=== PATIENT | female | born 1945 | race Hispanic/Latino ===

== ENCOUNTER 2017-03-28 15:27 | Emergency (ER) | payer MEDICARE, OTHER ==
[2017-03-28 15:33] VITALS: BMI 28.8
[2017-03-28 15:52] VITALS: TEMP 97.4
--- NOTE | 2017-03-28 16:22 | ED PDOC ---
Arrival/HPI - General Historian: Patient - History of Present Illness Time/Duration: Other (few weeks) Symptom Course: Worsening (today) Quality: Other Context: Home <Jose Mcclure Collin - Last Filed: 03/28/17 18:49> <Shwetha Dumont - Last Filed: 03/28/17 21:12> - General Chief Complaint: Abdominal Pain Time Seen by Provider: 03/28/17 15:30 - History of Present Illness Narrative History of Present Illness (Text): 03/28/17 16:18 A 72 year old female, whose past medical history includes chronic back pain, presents to the emergency department complaining of mid upper epigastric pain for the past few weeks. Patient reports her pain is exacerbated with movement. She notes her symptom worsened today causing her to come in for further evaluation. Patient reports she had a concussion after a fall approximately 4 months ago, which she receives physical therapy for. Patient denies any fever, chills, nausea, vomiting, appetite changes, diarrhea, urinary symptoms, chest pain, shortness of breath, cough, headache, dizziness or any other complaints. (KamiJose Collin) Past Medical History - Provider Review Nursing Documentation Reviewed: Yes - Infectious Disease Hx of Infectious Diseases: None - Tetanus Immunization Tetanus Immunization: Unknown - Cardiac Hx Hypertension: Yes - Psychiatric Hx Substance Use: No <Jose Mcclure - Last Filed: 03/28/17 18:49> Family/Social History - Physician Review Nursing Documentation Reviewed: Yes Family/Social History: No Known Family HX Smoking Status: Never Smoked Hx Alcohol Use: No Hx Substance Use: No Hx Substance Use Treatment: No <Jose Mcclure Collin - Last Filed: 03/28/17 18:49> Allergies/Home Meds <Jose Mcclure Collin - Last Filed: 03/28/17 18:49> <Shwetha Dumont - Last Filed: 03/28/17 21:12> Allergies/Adverse Reactions: Allergies chlordiazepoxide [From Librax (with clidinium)] Allergy (Verified 03/28/17 15:37 ) DIARRHEA clidinium [From Librax (with clidinium)] Allergy (Verified 03/28/17 15:37) DIARRHEA codeine Allergy (Verified 03/28/17 15:37) DIARRHEA iron Allergy (Verified 03/28/17 15:37) URTICARIA Penicillins Allergy (Verified 03/28/17 15:37) URTICARIA polymyxin B Allergy (Verified 03/28/17 15:37) URTICARIA Tetracyclines Allergy (Verified 03/28/17 15:37) URTICARIA clarithromycin Adverse Reaction (Verified 03/28/17 15:37) DIARRHEA clindamycin [From Cleocin] Adverse Reaction (Verified 03/28/17 15:37) DIZZINESS Home Medications: Home Meds Medication Instructions Recorded Confirmed Fosinopril Sodium [Fosinopril 20 mg PO DAILY 03/28/17 03/28/17 Sodium] Meclizine HCl [Motion Sickness II] 25 mg PO PRN PRN 03/28/17 03/28/17 Triamterene/Hydrochlorothiazid 1 tab PO DAILY 03/28/17 03/28/17 [Triamterene-Hctz 37.5-25 mg Tb] cycloSPORINE [Restasis] 1 drop OU DAILY 03/28/17 03/28/17 Review of Systems - Physician Review All systems were reviewed & negative as marked: Yes - Review of Systems Constitutional: absent: Fevers, Night Sweats Respiratory: absent: SOB, Cough Cardiovascular: absent: Chest Pain Gastrointestinal: Abdominal Pain. absent: Diarrhea, Nausea, Vomiting Neurological: absent: Headache, Dizziness <Kami,Haviva Y - Last Filed: 03/28/17 18:49> Physical Exam Vital Signs Reviewed: Yes Temperature: Afebrile Blood Pressure: Normal Pulse: Regular Respiratory Rate: Normal Appearance: Positive for: Well-Appearing, Non-Toxic, Comfortable Pain Distress: None Mental Status: Positive for: Alert and Oriented X 3 - Systems Exam Head: Present: Atraumatic, Normocephalic Pupils: Present: PERRL Extroacular Muscles: Present: EOMI Conjunctiva: Present: Normal Mouth: Present: Moist Mucous Membranes Neck: Present: Normal Range of Motion Respiratory/Chest: Present: Clear to Auscultation, Good Air Exchange. No: Respiratory Distress, Accessory Muscle Use Cardiovascular: Present: Regular Rate and Rhythm, Normal S1, S2. No: Murmurs Abdomen: Present: Tenderness (mild reproducible epigastric tenderness), Normal Bowel Sounds. No: Distention, Peritoneal Signs, Rebound, Guarding Back: Present: Normal Inspection Upper Extremity: Present: Normal Inspection. No: Cyanosis, Edema Lower Extremity: Present: Normal Inspection. No: Edema Neurological: Present: GCS=15, CN II-XII Intact, Speech Normal Skin: Present: Warm, Dry, Normal Color. No: Rashes Psychiatric: Present: Alert, Oriented x 3, Normal Insight, Normal Concentration <Shiraz Mcclurekai Polanco - Last Filed: 03/28/17 18:49> Vital Signs Temp Pulse Resp BP Pulse Ox 03/28/17 19:00 94 H 22 121/70 95 03/28/17 17:27 86 20 150/69 100 03/28/17 15:39 97.4 F L 79 20 148/88 98 Medical Decision Making - Lab Interpretations I have reviewed the lab results: Yes <KamiJose Polanco - Last Filed: 03/28/17 18:49> Re-evaluation Time: 20:36 (pt is back from nuc med.Awaiting VQ results) <Shwetha Dumont - Last Filed: 03/28/17 21:12> ED Course and Treatment: 03/28/17 16:18 Impression: A 72 year old female with upper mid epigastric pain. Plan: -- Chest CT -- Chest xray -- EKG -- Labs -- Toradol -- Reassess and disposition Progress Notes: EKG shows NSR at 92 BPM with LVH, no ST-segment elevations. Interpreted by me. 03/28/17 17:38 Patient reports she experienced facial swelling the last time she was given CT contrast. Will cancel CT and order a vq scan. 03/28/17 19:[address] Dumont, pending vq scan results and disposition. (Jose Mcclure) - Lab Interpretations Lab Results: 03/28/17 16:24 03/28/17 16:24 Lab Results 03/28/17 16:24: Sodium 139, Potassium 4.1, Chloride 102, Carbon Dioxide 28, Anion Gap 13, BUN 20, Creatinine 0.8, Est GFR ( Amer) > 60, Est GFR (Non- Af Amer) > 60, Random Glucose 108, Calcium 10.4, Total Bilirubin 0.6, AST 42 H, ALT 23, Alkaline Phosphatase 68, Troponin I < 0.01, Total Protein 7.7, Albumin 4.3, Globulin 3.4, Albumin/Globulin Ratio 1.3, Lipase 89 03/28/17 16:24: PT 11.2, INR 1.03, APTT 30.8, D-Dimer, Quantitative 247 H 03/28/17 16:24: WBC 6.4, RBC 4.58, Hgb 13.4, Hct 40.6, MCV 88.6, MCH 29.3, MCHC 33.0, RDW 14.5, Plt Count 191, MPV 10.9, Gran % 67.0, Lymph % (Auto) 25.8, [place] % (Auto) 5.9, Eos % (Auto) 0.8 L, Baso % (Auto) 0.5, Gran # 4.32, Lymph # 1.7, [place] # 0.4, Eos # 0.1, Baso # 0.03 - RAD Interpretation Radiology Orders: 03/28/17 16:08 CHEST TWO VIEWS (PA/LAT) [RAD] Stat 03/28/17 17:37 LUNG PERF & VENT SCAN [NM] Stat - Medication Orders Current Medication Orders: Discontinued Medications Ketorolac Tromethamine (Toradol) 30 mg IVP STAT STA Stop: 03/28/17 16:05 Last Admin: 03/28/17 16:32 Dose: 30 mg MAR Pain Assessment Document 03/28/17 16:32 (Rec: 03/28/17 16:36 [id number]) Pain Reassessment Is this a pain reassessment? Yes Sleep Is patient sleeping during reassessment? No Presence of Pain Presence of Pain Yes Pain Scale Used Pain Scale Used Numeric Location Left, Right or Bilateral Bilateral Upper or Lower Upper Pain Location Body Site Abdomen Description Description Constant Intensity of Pain at present 9 Pain Behavior Grasping Site Restlessness Aggravating Factors Changing Position Alleviating Factors/Management Heat Techniques Position Change Relaxation Techniques IVP Administration Document 03/28/17 16:32 RG (Rec: 03/28/17 16:36 [id number]) Charges for Administration # of IVP Administrations 1 - Scribe Statement The provider has reviewed the documentation as recorded by the Scribe <Jose Mcclure - Last Filed: 03/28/17 18:49> <Shwetha Dumont - Last Filed: 03/28/17 21:12> - Scribe Statement Nicole Vogel Provider Scribe Attestation: All medical record entries made by the Scribe were at my direction and personally dictated by me. I have reviewed the chart and agree that the record accurately reflects my personal performance of the history, physical exam, medical decision making, and the department course for this patient. I have also personally directed, reviewed, and agree with the discharge instructions and disposition. (Jose Mcclure Y) Disposition/Present on Arrival - Present on Arrival History of DVT/PE: No History of Uncontrolled Diabetes: No Urinary Catheter: No History of Decub. Ulcer: No History Surgical Site Infection Following: None <Jose Mcclure - Last Filed: 03/28/17 18:49> - Present on Arrival Any Indicators Present on Arrival: No - Disposition Have Diagnosis and Disposition been Completed?: Yes Disposition Time: 21:09 Patient Plan: Discharge <Shwetha Dumont - Last Filed: 03/28/17 21:12> - Disposition Diagnosis: Abdominal pain Disposition: HOME/ ROUTINE Condition: GOOD Discharge Instructions (ExitCare): Abdominal Pain (ED), Dyspnea (ED) Referrals: Benja Rush MD [Primary Care Provider] - Follow up with primary Forms: [employer] (Belgian)
[2017-03-28 16:39] LABS: BASO # 0.03 K/mm3 (0.0-2.0); BASO % 0.5 % (0.0-3.0); EOS # 0.1 (0.0-0.7); EOS % 0.8 % (1.5-5.0); GRAN # 4.32 (1.4-6.5); HEMATOCRIT 40.6 % (36.0-48.0); LYMPH # 1.7 (1.2-3.4); LYMPH % 25.8 % (22.0-35.0); MEAN CELL VOLUME 88.6 fl (80.0-105.0); MEAN CORPUSCULAR HEMOGLOBIN 29.3 pg (25.0-35.0); MEAN PLATELET VOLUME 10.9 fl (7.0-11.0); MONO # 0.4 (0.1-0.6); MONO % 5.9 % (1.0-6.0); RED CELL DISTRIBUTION WIDTH 14.5 % (11.5-14.5); WHITE BLOOD COUNT 6.4 10^3/ul (4.5-11.0)
[2017-03-28 16:45] LABS: ALB/GLOB RATIO 1.3 (1.1-1.8); ALKALINE PHOSPHATASE 68 U/L (38-126); ALT/SGPT 23 U/L (7-56); AST/SGOT 42 U/L (14-36); BILIRUBIN,TOTAL 0.6 mg/dL (0.2-1.3); BLOOD UREA NITROGEN 20 mg/dL (7-21); CALCIUM 10.4 mg/dL (8.4-10.5); CARBON DIOXIDE 28 mmol/L (21-33); CHLORIDE 102 mmol/L (98-107); GFR AFRICAN-AMERICAN > 60; GLUCOSE,RANDOM 108 mg/dL (70-110); LIPASE 89 U/L (23-300); POTASSIUM 4.1 mmol/L (3.6-5.0); SODIUM 139 mmol/L (132-148); TOTAL PROTEIN 7.7 g/dL (5.8-8.3)
[2017-03-28 16:55] LABS: INR 1.03 (0.93-1.08); PARTIAL THROMBOPLASTIN TIME 30.8 Seconds (25.1-36.5)
[2017-03-28 16:56] LABS: TROPONIN I < 0.01 ng/mL
[2017-03-28] MEDS ORDERED: Iohexol 350 MG/100 ML VIAL ONE (17:18)
[2017-03-28 19:17] VITALS: RESP 22
--- NOTE | 2017-03-28 20:57 | ED PDOC ---
Physical Exam Vital Signs Reviewed: Yes Vital Signs Temp Pulse Resp BP Pulse Ox 03/28/17 21:34 88 22 126/74 100 03/28/17 19:00 94 H 22 121/70 95 03/28/17 17:27 86 20 150/69 100 03/28/17 15:39 97.4 F L 79 20 148/88 98 Temperature: Afebrile Blood Pressure: Normal Pulse: Regular Respiratory Rate: Normal Medical Decision Making ED Course and Treatment: 03/28/17 19:00 Patient endorsed to me by Dr. Mcclure, pending vq scan results and disposition. Reassessment Condition: Unchanged - Lab Interpretations Lab Results: 03/28/17 16:24 03/28/17 16:24 Lab Results 03/28/17 16:24: Sodium 139, Potassium 4.1, Chloride 102, Carbon Dioxide 28, Anion Gap 13, BUN 20, Creatinine 0.8, Est GFR ( Amer) > 60, Est GFR (Non- Af Amer) > 60, Random Glucose 108, Calcium 10.4, Total Bilirubin 0.6, AST 42 H, ALT 23, Alkaline Phosphatase 68, Troponin I < 0.01, Total Protein 7.7, Albumin 4.3, Globulin 3.4, Albumin/Globulin Ratio 1.3, Lipase 89 03/28/17 16:24: PT 11.2, INR 1.03, APTT 30.8, D-Dimer, Quantitative 247 H 03/28/17 16:24: WBC 6.4, RBC 4.58, Hgb 13.4, Hct 40.6, MCV 88.6, MCH 29.3, MCHC 33.0, RDW 14.5, Plt Count 191, MPV 10.9, Gran % 67.0, Lymph % (Auto) 25.8, [place] % (Auto) 5.9, Eos % (Auto) 0.8 L, Baso % (Auto) 0.5, Gran # 4.32, Lymph # 1.7, [place] # 0.4, Eos # 0.1, Baso # 0.03 - RAD Interpretation Narrative RAD Interpretations (Text): 03/28/17 21:03 VQ scan is read as negative/low probability Radiology Orders: 03/28/17 16:08 CHEST TWO VIEWS (PA/LAT) [RAD] Stat 03/28/17 17:37 LUNG PERF & VENT SCAN [NM] Stat - Medication Orders Current Medication Orders: Discontinued Medications Ketorolac Tromethamine (Toradol) 30 mg IVP STAT STA Stop: 03/28/17 16:05 Last Admin: 03/28/17 16:32 Dose: 30 mg MAR Pain Assessment Document 03/28/17 16:32 (Rec: 03/28/17 16:36 [id number]) Pain Reassessment Is this a pain reassessment? Yes Sleep Is patient sleeping during reassessment? No Presence of Pain Presence of Pain Yes Pain Scale Used Pain Scale Used Numeric Location Left, Right or Bilateral Bilateral Upper or Lower Upper Pain Location Body Site Abdomen Description Description Constant Intensity of Pain at present 9 Pain Behavior Grasping Site Restlessness Aggravating Factors Changing Position Alleviating Factors/Management Heat Techniques Position Change Relaxation Techniques IVP Administration Document 03/28/17 16:32 (Rec: 03/28/17 16:36 [id number]) Charges for Administration # of IVP Administrations 1 Disposition/Present on Arrival - Present on Arrival Any Indicators Present on Arrival: No History of DVT/PE: No History of Uncontrolled Diabetes: No Urinary Catheter: No History of Decub. Ulcer: No History Surgical Site Infection Following: None - Disposition Have Diagnosis and Disposition been Completed?: Yes Diagnosis: Chest wall pain Disposition: HOME/ ROUTINE Disposition Time: 06:12 Patient Plan: Discharge Condition: GOOD Discharge Instructions (ExitCare): Chest Pain (ED), Abdominal Pain (ED), Dyspnea (ED) Prescriptions: Naproxen [Naprosyn] 375 mg PO BID #20 tablet Referrals: Benja Rush MD [Primary Care Provider] - Follow up with primary Forms: [employer] (Kinyarwanda)
[2017-03-28 21:36] VITALS: BP 126/74; PULSE 88; O2SAT 100
--- NOTE | 2017-03-28 23:04 | CARD ---
APPROVED REPORT EKG Measurement Heart [id number] <Conclusion> Sinus rhythm with premature atrial complexes Pulmonary disease pattern Left anterior fascicular block Minimal voltage criteria for LVH, may be normal variant Nonspecific ST abnormality Abnormal ECG
--- NOTE | 2017-03-29 09:21 | RAD ---
HISTORY: cp COMPARISON: 09/01/2013 TECHNIQUE: Chest PA and lateral FINDINGS: LUNGS: No active pulmonary disease. PLEURA: No significant pleural effusion identified. No pneumothorax apparent. CARDIOVASCULAR: Normal. OSSEOUS STRUCTURES: No significant abnormalities. VISUALIZED UPPER ABDOMEN: Normal. OTHER FINDINGS: None. IMPRESSION: No active disease.
--- NOTE | 2017-03-29 10:18 | NM ---
COMPARISON: Chest x-ray same day TECHNIQUE: 33.0 mCi technetium 99-m DTPA inhaled 4.0 mCI technetium 99-m MAA administered intravenously. FINDINGS: VENTILATION COMPONENT: Normal. PERFUSION COMPONENT: Normal. The report concurs with the preliminary [facility] report IMPRESSION: Lowprobability ventilation perfusion scan for pulmonary embolism.
== END 2017-03-28 21:34 | disposition home or self-care (01) ==
LOC: ED 15:27
DX: R07.89 Other chest pain (principal); I10 Essential (primary) hypertension; Z88.0 Allergy status to penicillin
CPT/HCPCS: 71020; 78582; 80053; 83690; 84484; 85025; 85378; 85610; 85730; 93005; 96374; 99284; J1885

== ENCOUNTER 2018-06-12 08:15 | Outpatient (CLI) | payer MEDICARE, OTHER | END 2018-06-12 08:16 | disposition home or self-care (01) | LOC: LAB 08:15 | DX: D64.9 Anemia, unspecified (principal); M31.30 Wegener's granulomatosis without renal involvement; E04.1 Nontoxic single thyroid nodule; N28.9 Disorder of kidney and ureter, unspecified ==